=== PATIENT | male | born 1990 | race Caucasian/White ===

== ENCOUNTER 2020-10-25 20:00 | Emergency (ER) | payer BC ==
[2020-10-25 20:12] VITALS: BP 114/58; PULSE 72
[2020-10-25] MEDS ORDERED: Famotidine 20 MG/2 ML SDV IVPUSH ONE (20:32)
--- NOTE | 2020-10-25 20:34 | EDM.PDOCBH ---
ED HPI GENERAL MEDICAL PROBLEM - General Chief Complaint: Behavioral/Psych Stated Complaint: OVERDOSE Time Seen by Provider: 10/25/20 20:00 Source of Information: Reports: Patient, EMS, RN - History of Present Illness INITIAL COMMENTS - FREE TEXT/NARRATIVE: 30-year-old male who presents to the ER via EMS for clonazepam overdose. Patient is reported to have taken 20 tablets of clonazepam 1 mg with alcohol and texted his . Patient states he took 15 tabs of clonazepam and 5 are in the kitchen sink. Patient reports that he had been drinking alcohol throughout the day. Patient reports "he wanted to ". He states this has been long coming. He reports strife between him and his . He is very groggy but alert and oriented when awake. He denies any injuries. vital signs are stable at this ti me. Onset: Today Onset Date: 10/25/20 Onset Time: 18:00 Duration: Hour(s): (2), Getting Worse Location: Reports: Generalized Severity: Moderate - Related Data Allergies Allergy/AdvReac Type Severity Reaction Status Date / Time No Known Allergies Allergy Verified 06/11/16 23:45 Home Meds: Home Meds Citalopram Hydrobromide [Celexa] 20 mg PO DAILY 10/25/20 [History] clonazePAM [Clonazepam] 1 mg PO BEDTIME 10/25/20 [History] Past Medical History - Past Health History Medical/Surgical History: Denies Medical/Surgical History - Past Surgical History HEENT Surgical History: Reports: Tonsillectomy Other Musculoskeletal Surgeries/Procedures:: pins placed in foot for broken 5th metatarsal and left ring finger. shaved meniscus Social & Family History - Family History Family Medical History: No Pertinent Family History - Caffeine Use Caffeine Use: Reports: Coffee ED ROS GENERAL - Review of Systems Review Of Systems: See Below Constitutional: Reports: No Symptoms HEENT: Reports: No Symptoms Respiratory: Reports: No Symptoms Cardiovascular: Reports: No Symptoms Endocrine: Reports: No Symptoms GI/Abdominal: Reports: No Symptoms Musculoskeletal: Reports: No Symptoms Neurological: Reports: No Symptoms, Gait Disturbance Psychiatric: Reports: Suicidal Ideation Hematologic/Lymphatic: Reports: No Symptoms Immunologic: Reports: No Symptoms ED EXAM, BEHAVIORAL HEALTH - Physical Exam Exam: See Below Exam Limited By: Altered Mental Status General Appearance: Alert Eye Exam: Bilateral Eye: Normal Inspection, PERRL Ears: Normal External Exam, Normal Canal, Hearing Grossly Normal, Normal TMs Throat/Mouth: Normal Inspection, Normal Lips, Normal Oropharynx, Normal Voice, No Airway Compromise Head: Atraumatic, Normocephalic Neck: Normal Inspection, Supple, Non-Tender Respiratory/Chest: No Respiratory Distress, Lungs Clear, Normal Breath Sounds, Chest Non-Tender Cardiovascular: Normal Peripheral Pulses, Regular Rate, Rhythm, No Gallop, No JVD, No Murmur GI/Abdominal: Normal Bowel Sounds, Soft Extremities: Normal Inspection, Normal Range of Motion, Non-Tender, No Pedal Edema, Normal Capillary Refill Neurological: Alert, CN II-XII Intact, Oriented x 3 Psychiatric: Alert, Depressed Mood, Tearful, Suicidal Plan (overdose on clonazepam), Suicidal Thoughts (Patient reports intend to kill himself when he overdose on clonazepam) Skin Exam: Warm, Intact, Normal color #1 Interpretation EKG Date: 10/25/20 Time: 20:23 Rhythm: NSR Rate (Beats/Min): 63 COURSE, BEHAVIORAL HEALTH COMP - Course Vital Signs: Last Vital Signs Temp 98.0 F 10/25/20 20:06 Pulse 72 10/25/20 20:06 Resp 17 10/25/20 20:06 BP 114/58 L 10/25/20 20:06 Pulse Ox 94 L 10/25/20 20:06 Orders, Labs, Meds: Laboratory Tests 10/25/20 10/25/20 10/25/20 Range/Units 20:22 20:22 20:22 WBC 5.1 (5.0-10.0) 10^3/uL RBC 4.30 L (4.6-6.2) 10^6/uL Hgb 14.3 (14.0-18.0) g/dL Hct 39.5 L (40.0-54.0) % MCV 91.9 (80-100) fL MCH 33.3 (27.0-34.0) pg MCHC 36.2 H (33.0-35.0) g/dL Plt Count 160 (150-450) 10^3/uL Neut % (Auto) 38.7 L (42.2-75.2) % Lymph % (Auto) 44.6 (20.5-50.1) % [place] % (Auto) 14.3 H (2-8) % Eos % (Auto) 2.2 (1.0-3.0) % Baso % (Auto) 0.2 (0.0-1.0) % Sodium 144 (136-145) mmol/L Potassium 3.8 (3.5-5.1) mmol/L Chloride 106 (98-107) mmol/L Carbon Dioxide 28 (21-32) mmol/L Anion Gap 13.8 H (7-13) mEq/L BUN 10 (7-18) mg/dL Creatinine 0.95 (0.70-1.30) mg/dL Est Cr Clr Drug Dosing 128.49 mL/min Estimated GFR (MDRD) > 60 BUN/Creatinine Ratio 10.5 (No establ ref range) Glucose 81 (74-99) mg/dL Calcium 8.3 L (8.5-10.1) mg/dL Total Bilirubin 0.6 (0.2-1.0) mg/dL AST 31 (15-37) U/L ALT 43 (16-63) U/L Alkaline Phosphatase 54 (46-116) U/L Total Protein 6.9 (6.4-8.2) g/dL Albumin 3.8 (3.4-5.0) g/dL Globulin 3.1 Albumin/Globulin Ratio 1.2 Urine Color (YELLOW) Urine Appearance (CLEAR) Urine pH (5.0-9.0) Ur Specific Trade (1.005-1.030) Urine Protein (NEGATIVE) Urine Glucose (UA) (NEGATIVE) Urine Ketones (NEGATIVE) Urine Occult Blood (NEGATIVE) Urine Nitrite (NEGATIVE) Urine Bilirubin (NEGATIVE) Urine Urobilinogen (0.2-1.0) mg/dL Ur Leukocyte Esterase (NEGATIVE) Urine RBC /HPF Urine WBC (0-5/HPF) /HPF Ur Epithelial Cells (NOT SEEN) /HPF Amorphous Sediment (NOT SEEN) /HPF Urine Bacteria (0-FEW/HPF) /HPF Urine Mucus (NOT SEEN) /LPF Salicylates < 2.8 L (2.8-20(Therapeutic)) mg/dL Urine Opiates Screen (NEGATIVE) Ur Oxycodone Screen (NEGATIVE) Urine Methadone Screen (NEGATIVE) Acetaminophen 0 L (10-30 (Therapeutic)) ug/mL Ur Barbiturates Screen (NEGATIVE) U Tricyclic Antidepress (NEGATIVE) Ur Phencyclidine Scrn (NEGATIVE) Ur Amphetamine Screen (NEGATIVE) U Methamphetamines Scrn (NEGATIVE) Urine MDMA Screen (NEGATIVE) U Benzodiazepines Scrn (NEGATIVE) Urine Cocaine Screen (NEGATIVE) U Marijuana (THC) Screen (NEGATIVE) Ethyl Alcohol 179 (0) mg/dL 10/26/20 10/26/20 Range/Units 02:15 02:15 WBC (5.0-10.0) 10^3/uL RBC (4.6-6.2) 10^6/uL Hgb (14.0-18.0) g/dL Hct (40.0-54.0) % MCV (80-100) fL MCH (27.0-34.0) pg MCHC (33.0-35.0) g/dL Plt Count (150-450) 10^3/uL Neut % (Auto) (42.2-75.2) % Lymph % (Auto) (20.5-50.1) % [place] % (Auto) (2-8) % Eos % (Auto) (1.0-3.0) % Baso % (Auto) (0.0-1.0) % Sodium (136-145) mmol/L Potassium (3.5-5.1) mmol/L Chloride (98-107) mmol/L Carbon Dioxide (21-32) mmol/L Anion Gap (7-13) mEq/L BUN (7-18) mg/dL Creatinine (0.70-1.30) mg/dL Est Cr Clr Drug Dosing mL/min Estimated GFR (MDRD) BUN/Creatinine Ratio (No establ ref range) Glucose (74-99) mg/dL Calcium (8.5-10.1) mg/dL Total Bilirubin (0.2-1.0) mg/dL AST (15-37) U/L ALT (16-63) U/L Alkaline Phosphatase (46-116) U/L Total Protein (6.4-8.2) g/dL Albumin (3.4-5.0) g/dL Globulin Albumin/Globulin Ratio Urine Color Yellow (YELLOW) Urine Appearance Clear (CLEAR) Urine pH 5.5 (5.0-9.0) Ur Specific Trade 1.020 (1.005-1.030) Urine Protein Negative (NEGATIVE) Urine Glucose (UA) Negative (NEGATIVE) Urine Ketones Negative (NEGATIVE) Urine Occult Blood Negative (NEGATIVE) Urine Nitrite Negative (NEGATIVE) Urine Bilirubin Negative (NEGATIVE) Urine Urobilinogen 0.2 (0.2-1.0) mg/dL Ur Leukocyte Esterase Negative (NEGATIVE) Urine RBC 0-5 /HPF Urine WBC 0-5 (0-5/HPF) /HPF Ur Epithelial Cells Not seen (NOT SEEN) /HPF Amorphous Sediment Rare (NOT SEEN) /HPF Urine Bacteria Not seen (0-FEW/HPF) /HPF Urine Mucus Rare (NOT SEEN) /LPF Salicylates (2.8-20(Therapeutic)) mg/dL Urine Opiates Screen Negative (NEGATIVE) Ur Oxycodone Screen Negative (NEGATIVE) Urine Methadone Screen Negative (NEGATIVE) Acetaminophen (10-30 (Therapeutic)) ug/mL Ur Barbiturates Screen Negative (NEGATIVE) U Tricyclic Antidepress Negative (NEGATIVE) Ur Phencyclidine Scrn Negative (NEGATIVE) Ur Amphetamine Screen Negative (NEGATIVE) U Methamphetamines Scrn Negative (NEGATIVE) Urine MDMA Screen Negative (NEGATIVE) U Benzodiazepines Scrn Negative (NEGATIVE) Urine Cocaine Screen Negative (NEGATIVE) U Marijuana (THC) Screen Positive H (NEGATIVE) Ethyl Alcohol (0) mg/dL Medications Discontinued Medications Generic Name Dose Route Start Last Admin Trade Name Freq PRN Reason Stop Dose Admin Famotidine 20 mg 10/25/20 20:32 10/25/20 21:11 Famotidine 20 Mg/2 Ml Sdv IVPUSH 10/25/20 20:33 20 mg ONETIME ONE Administration Flumazenil 0.2 mg 10/26/20 01:31 10/26/20 01:43 Flumazenil 0.1 Mg/Ml 5 Ml Mdv IVPUSH 10/26/20 01:32 0.2 mg ONETIME ONE Administration Sodium Chloride 1,000 mls @ 1,000 mls/hr 10/25/20 21:49 10/25/20 22:07 Normal Saline IV 10/25/20 22:48 1,000 mls/hr .BOLUS ONE Administration Sodium Chloride 1,000 mls @ 1,000 mls/hr 10/26/20 00:47 10/26/20 00:52 Normal Saline IV 10/26/20 01:46 1,000 mls/hr .BOLUS ONE Administration Sodium Chloride 1,000 mls @ 500 mls/hr 10/26/20 02:08 10/26/20 02:22 Normal Saline IV 10/26/20 04:07 500 mls/hr .BOLUS ONE Administration Re-Assessment/Re-Exam: Exam findings, vital signs, lab results, EKG and plan of care reviewed with patient and his . Per poison control, patient should be monitored for 4 to 6 hours and if stable he can be assess for psychiatric admission. Patient was monitored for 6 hours with IV fluids administered and his blood pressure was noted to drop into the 80s. Patient was awake a couple of times and had a conversation with his family and staff. 0.2 mg of flumazenil was adm inistered to increase alertness with success. [facility]. Patient and family in agreement with plan. Departure - Departure Time of Disposition: 02:07 Disposition: DC/Tfer to Acute Hospital 02 Condition: Fair Clinical Impression: Alcohol abuse Benzodiazepine (tranquilizer) overdose Qualifiers: Encounter type: initial encounter Injury intent: intentional self-harm Qualified Code(s): T42.4X2A - Poisoning by benzodiazepines, intentional self- harm, initial encounter - Discharge Information Referrals: An Sandoval MD [Primary Care Provider] - Forms: ED Department Discharge, Interfacility Transfer GI
[2020-10-25 20:47] LABS: ACETAMINOPHEN 0 ug/mL (10-30 (Therapeutic)); ANION GAP 13.8 mEq/L (7-13); CHLORIDE,CL 106 mmol/L (98-107); SODIUM,NA 144 mmol/L (136-145)
--- NOTE | 2020-10-25 21:16 | CR ---
PROCEDURE INFORMATION: Exam: XR Chest Exam date and time: 10/25/2020 8:44 PM Age: 30 years old Clinical indication: Other: Od; Additional info: Weakness TECHNIQUE: Imaging protocol: XR of the chest Views: 1 view. COMPARISON: CR Chest 2V 04/04/2016 3:44 PM FINDINGS: Lungs: Unremarkable. No consolidation. Pleural spaces: Unremarkable. No pleural effusion. No pneumothorax. Heart/Mediastinum: Unremarkable. No cardiomegaly. Bones/joints: Unremarkable. IMPRESSION: 1. No acute findings. 2. No change.
[2020-10-25] MEDS ORDERED: Sodium Chloride 0.9% 1,000 ML IV ONE (21:49)
[2020-10-26] MEDS ORDERED: Sodium Chloride 0.9% 1,000 ML IV ONE ×2 (00:47→02:08)
[2020-10-26] MEDS ORDERED: Flumazenil 0.1 MG/ML 5 ML MDV IVPUSH ONE (01:31)
== END 2020-10-26 02:30 ==
LOC: DL.ED 20:00
DX: T42.4X2A Poisoning by benzodiazepines, intentional self-harm, initial encounter (principal); F10.10 Alcohol abuse, uncomplicated; R41.82 Altered mental status, unspecified; Y90.6 Blood alcohol level of 120-199 mg/100 ml
CPT/HCPCS: 36415; 71045; 80053; 80143; 80179; 80305; 80307; 81001; 85025; 93005; 96374; 96375; 99284; 99285; J3490; J7030